=== PATIENT | male | born 1985 | race Caucasian/White ===

== ENCOUNTER 2017-09-13 21:23 | Emergency (ER) | payer BC ==
[2017-09-13] MEDS ORDERED: Dexamethasone 4 mg/ml Vial ONE (22:07)
[2017-09-13] MEDS ORDERED: Ibuprofen 800 MG TAB ONE (22:19)
== END 2017-09-13 22:48 | disposition home or self-care (01) ==
LOC: ERS 21:23
DX: B34.9 Viral infection, unspecified (principal); F17.210 Nicotine dependence, cigarettes, uncomplicated
CPT/HCPCS: 87081; 87430; 99283; J1100